=== PATIENT | female | born 1950 | race Caucasian/White ===

== ENCOUNTER → 2020-03-01 16:06 | Outpatient (CLI) | payer MEDICARE, SELFPAY ==
--- NOTE | 2020-03-01 | XR_ITS ---
PROCEDURE: XR WRIST RT MIN 3V CLINICAL INDICATION: Pain and swelling COMPARISON: No exams were available for comparison FINDINGS: IMPRESSION: No acute findings. Dictated by: Lawrence Mehta MD 03/01/2020 16:24 Electronically signed by Lawrence Mehta MD in [facility] 03/01/2020 16:24
== END ==
PROVIDERS: PCP Family Medicine; Visit Provider Nurse Practitioner Family
DX: M25.431 Effusion, right wrist (principal)
CPT/HCPCS: 73110

== ENCOUNTER 2021-06-12 19:45 | Emergency (ER) | payer MEDICARE, SELFPAY ==
[2021-06-12] VITALS (7 sets, daily range): BP systolic 106–126; BP diastolic 47–58; PULSE 57–74; RESP 16; TEMP 36.5; O2SAT 97–100; BMI 19.3
--- NOTE | 2021-06-12 20:24 | CT_ITS ---
PROCEDURE INFORMATION: Exam: CT Head Without Contrast Exam date and time: 06/12/2021 8:24 PM Age: 70 years old Clinical indication: Pain; Headache; Patient HX: Dizziness with right sided head ache that started this morning TECHNIQUE: Imaging protocol: Computed tomography of the head without contrast. 3D rendering (Not supervised by radiologist): MIP and/or 3D reconstructed images were created by the technologist. Radiation optimization: All CT scans at this facility use at least one of these dose optimization techniques: automated exposure control; mA and/or kV adjustment per patient size (includes targeted exams where dose is matched to clinical indication); or iterative reconstruction. COMPARISON: No relevant prior studies available. FINDINGS: Brain: Normal. No hemorrhage. Unremarkable white matter. No mass effect. Cerebral ventricles: No ventriculomegaly. Paranasal sinuses: Visualized sinuses are unremarkable. No fluid levels. Mastoid air cells: Diminished aeration within the right mastoid sinus compared to the left, which is likely secondary to remote right mastoid sinus disease. No active mastoid sinus disease currently. Vasculature: Intraranial artery density is normal. Bones/joints: Unremarkable. No acute fracture. Soft tissues: Unremarkable. IMPRESSION: No acute intracranial abnormality.
[2021-06-12 21:20] LABS: Basophils # 0.1 K/mm3 (0-0.2); Basophils % 1.3 % (0.1-2.0); Eosinophils % 0.8 % (0.1-12.0); Hematocrit 42.8 % (37.0-47.0); Hemoglobin 14.1 g/dL (12.2-16.2); Lymphocytes # 1.5 K/mm3 (0.7-4.5); Lymphocytes % 29.8 % (10-50); Mean Platelet Volume 8.4 fl (7.4-10.4); Monocytes # 0.2 K/mm3 (0.1-1.0); Monocytes % 4.9 % (1.7-9.3); Neutrophils # 3.1 K/mm3 (1.8-7.8); Neutrophils % 63.2 % (37.0-80.0); Platelet Count 251 K/mm3 (142-424); Red Blood Count 4.28 M/mm3 (4.20-5.40); Red Cell Distribution Width 13.9 % (11.5-17.5)
[2021-06-12 21:25] LABS: Alanine Aminotransferase 18 U/L (12-78); Albumin/Globulin Ratio 1.3 (1.1-1.8); Alkaline Phosphatase 101 U/L (38-126); Anion Gap 11.3 mEq/L (5-15); Aspartate Amino Transferase 32 U/L (14-36); Bilirubin,Total 0.2 mg/dl (0.2-1.3); Blood Urea Nitrogen 14 mg/dl (7-17); Calcium 9.1 mg/dl (8.4-10.2); Carbon Dioxide 30 mmol/L (22.0-30.0); Chloride 103 mmol/L (98-107); Creatinine Clearance Estimated 46 mL/min (50-200); Estimated Glomerular Filt Rate 99 ml/min (>60); GFR (African American) 120 ML/MIN (>60); Globulin 3.1 g/dL (1.3-3.2); Glucose 132 mg/dl (74-100); Potassium 4.3 mmoL/L (3.5-5.1); Sodium 140 mmol/L (136-145); Total Protein,Serum 7.1 g/dl (6.3-8.2)
[2021-06-12 21:30] LABS: C-Reactive Protein 0.4 mg/L (0-4)
[2021-06-12 21:44] LABS: Procalcitonin 0.041 ng/mL (0.0-2.0)
[2021-06-12 21:56] LABS: Erythrocyte Sedimentation Rate 48 mm/hr (0-30)
[2021-06-12 22:11] LABS: Microscopic, Urine URINE MICROSCOPIC (MICROSCOPIC)
[2021-06-12 22:18] LABS: Appearance,Urine CLOUDY (Clear); Bilirubin,Urine Negative (Negative); Blood, Urine Negative (Negative); Color,Urine YELLOW (Yellow); Glucose,Urine (UA) Negative (Negative); Ketones,Urine Negative (Negative); Leukocyte Esterase,Urine 1+ (Negative); Nitrate,Urine Negative (Negative); PH,Urine 7.5 (5.0-8.5); Protein,Urine Negative (Negative); Specific Gravity, Urine 1.015 (1.005-1.030); Urobilinogen,Urine 0.2 EU/dl (0.2)
[2021-06-12 22:30] LABS: Bacteria,Urine 2+ /lpf
--- NOTE | 2021-06-12 23:42 | [facility].EDDIZZ ---
ED Disposition Clinical Impression: Benign paroxysmal positional vertigo Qualifiers: Laterality: unspecified laterality Qualified Code(s): H81.10 - Benign paroxysmal vertigo, unspecified ear UTI (urinary tract infection) Qualifiers: Urinary tract infection type: site unspecified Hematuria presence: without hematuria Qualified Code(s): N39.0 - Urinary tract infection, site not specified Disposition: Home, Self-Care Condition on Discharge: Good Instructions: Vertigo Additional Instructions: fluids and use meds and call pcp about urine culture Prescriptions: Meclizine HCl [Antivert 25mg tablet] 25 mg PO TID #10 tab Prescription Printed levoFLOXacin [Levaquin 500mg tab] 500 mg PO DAILY #7 tab Prescription Printed Referrals: Nash Garcia MD [Primary Care Provider] - - Critical Care Critical Care Time: No Attestation: On 06/12/21, the high probability of a clinically significant, sudden or life threatening deterioration of the following system(s) required my full and direct attention, intervention and personal management. The time I documented below is in addition to time spent performing reported procedures but includes the following listed in this critical care notation. Medical Decision Making - Medical Records Medical records reviewed: Yes: I reviewed the patient's medical records. - [place] Inquiry Pt receiving controlled substance: No Vital Signs: 06/12/21 19:47 Temperature 97.7 F Temperature Source Oral Pulse Rate [Right Radial] 63 Respiratory Rate 16 Blood Pressure [Right Arm] 114/47 L Blood Pressure Mean [Right Arm] 69 Blood Pressure Source [Right Arm] Automatic Cuff Blood Pressure Position [Right Arm] Sitting 02 Sat by Pulse Oximetry 100 Oxygen Delivery Method Room Air - Lab Data Lab results reviewed: Yes: I reviewed the patient's lab results. Lab Results 06/12/21 20:52: WBC 5.0, RBC 4.28, Hgb 14.1, Hct 42.8, MCV 100.0 H, MCH 33.0 H, MCHC 33.0, RDW 13.9, Plt Count 251, MPV 8.4, Neut % (Auto) 63.2, Lymph % (Auto) 29.8, [place] % (Auto) 4.9, Eos % (Auto) 0.8, Baso % (Auto) 1.3, Neut # (Auto) 3.1, Lymph # (Auto) 1.5, [place] # (Auto) 0.2, Eos # (Auto) 0.0, Baso # (Auto) 0.1, ESR 48 H 06/12/21 20:52: Sodium 140, Potassium 4.3, Chloride 103, Carbon Dioxide 30, Anion Gap 11.3, BUN 14, Creatinine 0.60, Estimated Creat Clear 46, Estimated GFR 99, Est GFR ( Amer) 120, Glucose 132 H, Calcium 9.1, Total Bilirubin 0.2, AST 32, ALT 18, Alkaline Phosphatase 101, C-Reactive Protein 0.4, Total Protein 7.1, Albumin 4.0, Globulin 3.1, Albumin/Globulin Ratio 1.3, Procalcitonin 0.041 06/12/21 22:08: Urine Color Yellow, Urine Appearance Cloudy, Urine pH 7.5, Ur Specific [place] 1.015, Urine Protein Negative, Urine Glucose (UA) Negative, Urine Ketones Negative, Urine Blood Negative, Urine Nitrate Negative, Urine Bilirubin Negative, Urine Urobilinogen 0.2, Ur Leukocyte Esterase 1+ A, Urine RBC 3-5, Urine WBC 5-10, Ur Squamous Epith Cells 3-5, Urine Bacteria 2+ Result diagrams: 06/12/21 20:52 06/12/21 20:52 Orders (Tests/Meds): ED MEDICATIONS Generic Name Dose Route Start Last Admin Trade Name Freq PRN Reason Stop Dose Admin Sodium Chloride 1,000 mls @ 999 mls/hr 06/12/21 20:45 06/12/21 20:59 Sod Chlor 0.9% 1000ml Bag IV 06/12/21 21:45 999 mls/hr .[id number] MYA Administration Discontinued Medications Generic Name Dose Route Start Last Admin Trade Name Freq PRN Reason Stop Dose Admin Meclizine HCl 25 mg 06/12/21 23:24 06/12/21 23:32 Meclizine 25mg Tablet PO 06/12/21 23:25 25 mg ONCE ONE Administration Methylprednisolone Sodium Succinate 125 mg 06/12/21 22:09 06/12/21 22:10 Methylprednisolone Sod Succ 125mg Vial IV 06/12/21 22:10 125 mg ONCE ONE Administration Ondansetron HCl 4 mg 06/12/21 20:39 06/12/21 20:59 Ondansetron 4mg/2ml Vial IV 06/12/21 20:40 4 mg ONCE ONE Administration ORDERS Category Date Time Status Urine Culture Stat Micro
[2021-06-13 00:05] VITALS: BP 127/61; PULSE 66; RESP 18; TEMP 36.7; O2SAT 99
== END 2021-06-13 00:09 | disposition home or self-care (01) ==
PROVIDERS: Emergency Provider Emergency Medicine; PCP Family Medicine
DX: H81.10 Benign paroxysmal vertigo, unspecified ear (principal); N39.0 Urinary tract infection, site not specified
CPT/HCPCS: 70450; 80053; 81001; 84145; 85025; 85651; 86140; 87086; 96365; 96375; 99283; J2405

== ENCOUNTER → 2023-07-29 14:35 | Outpatient (CLI) | payer MEDICARE, SELFPAY ==
--- NOTE | 2023-07-29 14:45 | MM_ITS ---
PROCEDURE INFORMATION: Exam: MG Bilateral Screening 3D Mammography Exam date and time: 07/29/2023 2:51 PM Age: 73 years old Clinical indication: Screening examination. Personal history of cervical cancer. No family history of breast cancer. TECHNIQUE: Imaging protocol: Bilateral Screening tomosynthesis and 2D mammography including computer-aided detection (CAD) when performed. COMPARISON: No relevant prior studies available.If prior mammograms are provided, I am happy to add an addendum. FINDINGS: MAMMOGRAPHY: Breast composition: The breasts are heterogeneously dense, which may obscure small masses. Mass: None. Architectural distortion: Diffuse bilateral architectural distortion with history of reduction mammoplasty. See below as well. Calcifications: No suspicious calcifications. Asymmetric density: Extensive bilateral asymmetries, with no focal dominant asymmetry. Skin thickening: None. Axillary adenopathy: None. IMPRESSION: Comparison to prior mammogram will be most helpful. If this is not provided within 2 weeks, suggest bilateral screening sonography for further evaluation of bilateral patchy asymmetries, more likely related to residual asymmetric tissue and postoperative scarring, unless otherwise clinically indicated. ASSESSMENT: BI-RADS Category 0: Incomplete- Need Additional Imaging Evaluation and/or Prior Mammograms for Comparison
== END ==
PROVIDERS: PCP Family Medicine; Visit Provider Family Medicine
DX: Z12.31 Encounter for screening mammogram for malignant neoplasm of breast (principal)
CPT/HCPCS: 77063; 77067